=== PATIENT | female | born 1975 | race Caucasian/White ===

== ENCOUNTER → 2016-12-28 | Outpatient (CLI) | payer BC ==
[2017-01-09 13:14] LABS: HPV 16 RNA DETECTED (NOT DETECTED); HPV 18 45 RNA NOT DETECTED (NOT DETECTED)
== END | disposition home or self-care (01) ==
LOC: C.PAPS 18:16
PROVIDERS: ATTEND Physician Assistant
DX: Z01.419 Encounter for gynecological examination (general) (routine) without abnormal findings (principal)

== ENCOUNTER → 2017-03-21 | Outpatient (CLI) | payer BC | END | disposition home or self-care (01) | LOC: C.PATHSPEC 08:28 | PROVIDERS: ATTEND Obstetrics & Gynecology | DX: R87.612 Low grade squamous intraepithelial lesion on cytologic smear of cervix (LGSIL) (principal) ==